=== PATIENT | male | born 1995 | race Caucasian/White ===

== ENCOUNTER 2019-08-30 12:21 | Emergency (ER) | payer BC ==
[~2019-08-30] VITALS: Ht 182.9 cm; Wt 80.3 kg
[2019-08-30 12:29] VITALS: Ht 182.9 cm; Wt 80.3 kg
[2019-08-30 14:25] VITALS: BP 110/64
== END 2019-08-30 14:25 | disposition home or self-care (01) ==
LOC: ED 12:21
DX: N50.82 Scrotal pain (principal)
CPT/HCPCS: 87491; 87591